=== PATIENT | female | born 1960 | race Hispanic/Latino ===

== ENCOUNTER 2019-07-22 10:36 | Inpatient (IN) | payer OTHER ==
[~2019-07-22] VITALS: Ht 162.6 cm; Wt 97.1 kg
[~2019-07-22 10:36] MED LIST: LEVOTHYROXINE150 MCG PO
--- OUTSIDE RECORDS SUMMARY | 2019-07-22 10:42 | XMS REPORT | Clinical Summary ---
Author Author [facility] Organization [facility] Address Unknown Phone Unavailable Care Team Providers Care Grooving Lathe Tender Name Role Phone Harrison Irving MD PCP Allergies Comments Active Allergy Reactions Severity Noted Date Latex Itching 11/04/2016 Medications End Date Status Medication Sig Dispensed Refills Start Date Active levothyroxine (SYNTHROID) Take 150 mcg 0 150 MCG tablet by mouth every morning. Active Problems No known active problems Family History Relation Name Status Comments Father Mother Social History Date Tobacco Use Types Packs/Day Years Used Never Smoker Smokeless Tobacco: Never Used Drinks/Week oz/Week Comments Alcohol Use No Sex Assigned at Date Recorded Not on file Industry Job Start Date Occupation Not on file Not on file Not on file Travel End Travel History Travel Start No recent travel history available. Last Filed Vital Signs Not on file Plan of Treatment Health Maintenance Due Date Last Done Comments CERVICAL CANCER SCREENING 1982 BREAST CANCER SCREENING 2011 COLONOSCOPY SCREENING 2011 SHINGLES VACCINES (#1) 2011 INFLUENZA VACCINE 06/15/2019 Implants Device Identifier Shelf Expiration Date Model / Serial / Lot Implanted Type Area Manufactur er 01/12/2017 TVTRL / / System Contnc Rtrpbc Gynecare Tvt Urological N/A: N/A GYNECARE Exact - [id number] Implants Implanted: Qty: 1 on 11/10/2016 by or Lulu Mckeon MD at [facility] Description:Expiration 01-12-2017 Results Not on fileafter 07/21/2018 Insurance Type Payer Benefit Subscriber ID Effective Phone Address Plan / Dates Group HMO CIGNA CIGNA xxxxxxxxxxx 2015-P HMO/POS resent Advance Directives For more information, please contact: [phone] Patient Claims Account Manager Explanation Type Date Recorded Advance Directives, Living Will and Medical Power of Instrument And Control Technician
--- OUTSIDE RECORDS SUMMARY | 2019-07-22 10:48 | XMS REPORT | Clinical Summary ---
Author Author [facility] Organization [facility] Address Unknown Phone Unavailable Care Team Providers Care Popcorn Attendant Name Role Phone Harrison Irving MD PCP [...] Tvt Urological N/A: N/A GYNECARE Exact - [id number] Implants Implanted: Qty: 1 on 11/10/2016 by or Lulu Mckeon MD at [facility] Description:Expiration 01-12-2017 Results Not on fileafter 07/21/2018 Insurance Type Payer Benefit Subscriber ID Effective Phone Address Plan / Dates Group HMO CIGNA CIGNA xxxxxxxxxxx 2015-P HMO/POS resent Advance Directives For more information, please contact: [phone] Patient Bottom Buffer Explanation Type Date Recorded Advance Directives, Living Will and Medical Power of Coffee Plantation Worker
[2019-07-22] MEDS ORDERED: SODIUM CHLORIDE 0.9% 1000ML 1,000 ML IV STA (11:32)
[2019-07-22] MEDS ORDERED: ONDANSETRON HCL INJ 2MG/ML 2ML 2 MG/ML VIAL IV NR (11:32)
[2019-07-22] MEDS ORDERED: PANTOPRAZOLE 40 MG 10ML VIAL IV STA (11:32)
[2019-07-22] MEDS ORDERED: PANTOPRAZOLE 40 MG 10ML VIAL IV NR (11:35)
[2019-07-22 11:57] LABS: BILIRUBIN,URINE NEGATIVE (NEGATIVE); CLARITY,URINE CLEAR (CLEAR); COLOR,URINE YELLOW (YELLOW); KETONES,URINE NEGATIVE (NEGATIVE); LEUKOCYTE ESTERASE ,URINE NEGATIVE (NEGATIVE); NITRITE,URINE NEGATIVE (NEGATIVE); PROTEIN,URINE DIPSTICK NEGATIVE (NEGATIVE); URINE UROBILINOGEN 0.2 mg/dL (0.2 - 1)
[2019-07-22 11:58] LABS: BASOPHILS % 0.2 % (0.0-1.0); EOSINOPHILS % 0.1 % (0.0-6.0); LYMPHOCYTES # (AUTO) 2.5 (1.0-3.2); LYMPHOCYTES % 23.1 % (18.0-39.1); MEAN CORPUSCULAR HEMOGLOBIN 32.7 pg (28-32); MEAN CORPUSCULAR HGB CONC 33.1 g/dL (31-35); MEAN CORPUSCULAR VOLUME 98.7 fL (81-99); MONOCYTES # (AUTO) 0.5 (0.2-0.8); MONOCYTES % 4.6 % (4.4-11.3); NEUTROPHILS # (AUTO) 7.8 (2.1-6.9); NEUTROPHILS % 71.1 % (38.7-80.0); PLATELET COUNT 231 x10e3/uL (140-360); RED BLOOD COUNT 1.59 x10e6/uL (3.6-5.1); RED CELL DISTRIBUTION WIDTH 13.1 % (11.7-14.4)
[2019-07-22 12:04] LABS: INR 1.06; PARTIAL THROMBOPLASTIN TIME 17.6 seconds (23.8-35.5); PROTHROMBIN TIME 14.3 seconds (11.9-14.5)
[2019-07-22 12:05] LABS: HEMOGLOBIN 5.2 g/dL (12.0-16.0)
[2019-07-22 12:06] LABS: HEMATOCRIT 15.7 % (34.2-44.1)
[2019-07-22 12:11] LABS: BACTERIA,URINE FEW /HPF; EPITHELIAL CELLS,URINE FEW /LPF; RBC,URINE 0-5 /HPF (0-5); WBC,URINE (MAN) 0-5 /HPF (0-5)
[2019-07-22 12:14] LABS: ALANINE AMINOTRANSFERASE 16 IU/L (0-55); ALBUMIN 2.7 g/dL (3.5-5.0); ALBUMIN/GLOBULIN RATIO 1.4 (0.8-2.0); ALKALINE PHOSPHATASE 42 IU/L (40-150); ANION GAP 11.3 mmol/L (8-16); BLOOD UREA NITROGEN 36 mg/dL (7-26); BUN/CREATININE RATIO 60 (6-25); CALCIUM 7.7 mg/dL (8.4-10.2); CARBON DIOXIDE 22 mmol/L (22-29); CHLORIDE 109 mmol/L (98-107); CREATINE KINASE 48 IU/L (29-168); EST GLOMERULAR FILTRATION RATE > 60 ML/MIN (60-); GLUCOSE 171 mg/dL (74-118); LIPASE 13 U/L (8-78); POTASSIUM 4.3 mmol/L (3.5-5.1); SODIUM 138 mmol/L (136-145)
[2019-07-22] MEDS ORDERED: SODIUM CHLORIDE 0.9% 250ML 250 ML IV ONE (12:15)
[2019-07-22 12:28] LABS: B-TYPE NATRIURETIC PEPTIDE2 < 10.0 pg/mL (0-100)
--- NOTE | 2019-07-22 13:10 | Diagnostic Imaging Report ---
EXAMINATION: CHEST SINGLE (PORTABLE) INDICATION: Dizziness. COMPARISON: None FINDINGS: TUBES and LINES: None. LUNGS: Lungs are well inflated. Mild patchy bibasilar opacities, likely atelectasis. No evidence of lobar pneumonia or pulmonary edema. PLEURA: No pleural effusion or pneumothorax. HEART AND MEDIASTINUM: The cardiomediastinal silhouette is unremarkable. BONES AND SOFT TISSUES: No acute osseous abnormality. UPPER ABDOMEN: No free air under the diaphragm. IMPRESSION: Mild patchy bibasilar opacity, likely atelectasis. No evidence of lobar pneumonia. Signed by: Dr. Zoran Oliver MD on 07/22/2019 1:06 PM
--- NOTE | 2019-07-22 13:21 | Diagnostic Imaging Report ---
CT BRAIN WO HISTORY: 58-year-old female with dizziness and blurred vision COMPARISON: None. TECHNIQUE: Noncontrast axial scans were obtained from skull base to the vertex. Coronal and sagittal reconstructions obtained from the axial data. One or more of the following dose reduction techniques were used: Automated exposure control, adjustment of the mA and/or kV according to patient size, and/or utilization of iterative reconstruction technique. DISCUSSION: Scalp/Skull: Unremarkable. Brain sulci: Appropriate for patient's age. Ventricles: Normal in size and configuration. No hydrocephalus. Extra-axial spaces: No masses or fluid collections. Parenchyma: No abnormal densities. No mass, hemorrhage, or large vascular territory acute infarct. Dural sinuses: No abnormal densities. Sellar/Suprasellar region: Intact. Partially empty sella configuration is noted. Skull base: Intact. Incidental findings: None. IMPRESSION: No intracranial abnormalities identified. This preliminary report was issued by Dr. Jordan Salinas neuroradiology fellow at 1320 hours on 07/22/2019. The images and preliminary report were reviewed and signed by Dr. Jada Roth, neuroradiology faculty, on July 22, 2019 at 1529 hours. Signed by: Dr. Jada Roth M.D. on 07/22/2019 3:29 PM
[2019-07-22] MEDS ORDERED: SODIUM CHLORIDE 0.9% 1000ML 1,000 ML ONE ×2 (13:40→19:33)
--- NOTE | 2019-07-22 14:30 | NUR ---
CONSENT ON CHART FOR BLOOD TRANSFUSION
[2019-07-22] MEDS ORDERED: SODIUM CHLORIDE 0.9% 250ML 250 ML ONE ×2 (14:37→20:21)
--- NOTE | 2019-07-22 14:40 | NUR ---
1st unit of blood started. v.s.s.
[2019-07-22] MEDS: FUROSEMIDE INJ 10 MG/ML 2 ML VIAL IV PRN (17:48)
--- OUTSIDE RECORDS SUMMARY | 2019-07-22 18:03 | XMS REPORT | Clinical Summary ---
Author Author [facility] Organization [facility] Address Unknown Phone Unavailable Care Team Providers Care Mail Messenger Name Role Phone Harrison Irving MD PCP [...] Tvt Urological N/A: N/A GYNECARE Exact - [id number] Implants Implanted: Qty: 1 on 11/10/2016 by or Lulu Mckeon MD at [facility] Description:Expiration 01-12-2017 Results Not on fileafter 07/21/2018 Insurance Type Payer Benefit Subscriber ID Effective Phone Address Plan / Dates Group HMO CIGNA CIGNA xxxxxxxxxxx 2015-P HMO/POS resent Advance Directives For more information, please contact: [phone] 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
--- OUTSIDE RECORDS SUMMARY | 2019-07-22 18:03 | XMS REPORT ---
[facility] Address Unknown Phone Unavailable Care Team Providers Care Asphalt Roller Person Name Role Phone Rosario CARBONE Unavailable Unavailable Problems This patient has no known problems. Allergies, Adverse Reactions, Alerts This patient has no known allergies or adverse reactions. Medications This patient has no known medications. Results Test Description Test Time Test Comments Text Results Atomic Results Result Comments CT BRAIN WO 2019-07-22 13:13:00 [facility] [address] [place] [address] Patient Name: HAI RUIZ MR #: [id number] : 1960 Age/Sex: 58/F Req #: [id number] Adm Physician: Ordered by: AKHIL CARBONE MD Report #: [id number] Location: ER Room/Bed: Procedure: [id number] CT/CT BRAIN WO Exam Date: 07/22/19 Exam Time: 1223 REPORT STATUS: Signed CT BRAIN WO HISTORY: 58-year-old female with dizziness and blurred vision COMPARISON: None. TECHNIQUE: Noncontrast axial scans were obtained from skull base to the vertex. Coronal and sagittal reconstructions obtained from the axial data. One or more of the following dose reduction techniques were used: Automated exposure control, adjustment of the mA and/or kV according to patient size, and/or utilization of iterative reconstruction technique. DISCUSSION: Scalp/Skull: Unremarkable. Brain sulci: Appropriate for patient's age. Ventricles: Normal in size and configuration. No hydrocephalus. Extra-axial spaces: No masses or fluid collections. Parenchyma: No abnormal densities. No mass, hemorrhage, or large vascular territory acute infarct. Dural sinuses: No abnormal densities. Sellar/Suprasellar region: Intact. Partially empty sella configuration is noted. Skull base: Intact. Incidental findings: None. IMPRESSION: No intracranial abnormalities identified. This preliminary report was issued by Dr. Jordan Salinas neuroradiology fellow at 1320 hours on 07/22/2019. The images and preliminary report were reviewed and signed by Dr. Jada Roth, neuroradiology faculty, on July 22, 2019 at 1529 hours. Signed by: Dr. Jada Roth M.D. on 07/22/2019 3:29 PM Dictated By: JADA AKHTAR MD 1529 Transcribed By: SANTY on 07/22/19 1529 COPY TO: AKHIL CARBONE MD CHEST SINGLE (PORTABLE) 2019-07-22 13:05:00 [place] [address] Patient Name: HAI RUIZ MR #: [id number] : 1960 Age/Sex: 58/F Req #: [id number] Adm Physician: Ordered by: WAYNE CRUZ HEDGE FUND PRINCIPAL Report #: [id number] Location: ER Room/Bed: Procedure: [id number] DX/CHEST SINGLE (PORTABLE) Exam Date: 07/22/19 Exam Time: 1240 REPORT STATUS: Signed EXAMINATION: CHEST SINGLE (PORTABLE) ANA CATION: Dizziness. COMPARISON: None FINDINGS: TUBES and LINES: None. LUNGS: Lungs are well inflated. Mild patchy bibasilar opacities, likely atelectasis. No evidence of lobar pneumonia or pulmonary edema. PLEURA: No pleural effusion or pneumothorax. HEART AND MEDIASTINUM: The cardiomediastinal silhouette is unremarkable. BONES AND SOFT TISSUES: No acute osseous abnormality. UPPER ABDOMEN: No free air under the diaphragm. IMPRESSION: Mild patchy bibasilar opacity, likely atelectasis. No evidence of lobar pneumonia. Signed by: Dr. Mann Lloyd MD on 07/22/2019 1:06 PM Dictated By: MANN LLOYD MD 1306 Transcribed By: SANTY on 07/22/19 1306 COPY TO: WAYNE CRUZ NP
--- NOTE | 2019-07-22 18:35 | NUR ---
Received patient from Er patient arrived in stretcher she is awake alert and oriented x3, able to transfer from stretcher to bed with minimal assistance. Placed on telemetry ST. Wharton to gravity draining clear yellow urine emptied [place] 1100 clear yellow urine. Family at bedside, patient oriented to room instructed to call when needing assistance patient verbalized understanding.
[2019-07-22 18:50] VITALS: BP 102/69
[2019-07-22] MEDS ORDERED: LOVASTATIN40 MG (19:55)
[2019-07-22] MEDS ORDERED: ASPIRIN EC81 MG PO (19:56)
[2019-07-22] MEDS ORDERED: METFORMIN HCL500 MG PO (19:58)
[2019-07-22 20:16] VITALS: BP 102/60
[2019-07-22] MEDS: PANTOPRAZOLE 40 MG 10ML VIAL IV SCH (20:47)
--- NOTE | 2019-07-22 21:23 | NUR ---
PATIENT COMPLAINING OF BILATERAL CALF PAIN, BOTH ARE SWOLLEN. PAGED DR. ALATORRE TO NOTIFY AND SEE IF WANTED DOPPLER TO RULE OUT DVT BUT DECLINED. PATIENT ORDERED ONE TIME DOSE OF TYLENOL 325 MG FOR CALF PAIN. DID NOT CONTINUE HOME MEDS AT THIS TIME AND KEPT NPO. ORDERED TO CALL DR. DESOUZA TO NOTIFY AND SEE NEXT COURSE. PAGED DR. DESOUZA'S OFFICE. AWAITING CALL BACK.
[2019-07-22] MEDS ORDERED: ACETAMINOPHEN 325 MG TAB PO ONE (21:30)
[2019-07-22 21:50] VITALS: BP 102/60
[2019-07-22] MEDS ORDERED: SODIUM CHLORIDE 0.9% 250ML 500 ML ONE (22:47)
--- NOTE | 2019-07-22 23:02 | NUR ---
Spoke with Alvaro motion study technician., informed of stat Doppler order for patient
[2019-07-23] VITALS (9 sets, daily range): BP systolic 91–135; BP diastolic 56–86
[2019-07-23] MEDS ORDERED: ACETAMINOPHEN 1000 MG/100 ML IV STA (00:50)
[2019-07-23] MEDS ORDERED: ACETAMINOPHEN 1000 MG/100 ML IV PRN (01:00)
[2019-07-23] MEDS: FUROSEMIDE INJ 10 MG/ML 2 ML VIAL IV PRN ×2 (02:26→06:08)
[2019-07-23] MEDS ORDERED: SODIUM CHLORIDE 0.9% 250ML 250 ML ONE (02:49)
[2019-07-23 06:42] LABS: BASOPHILS # (AUTO) 0.1 (0.0-0.1); BASOPHILS % 0.8 % (0.0-1.0); EOSINOPHILS # (AUTO) 0.1 (0.0-0.4); EOSINOPHILS % 0.9 % (0.0-6.0); HEMATOCRIT 28.7 % (34.2-44.1); HEMOGLOBIN 9.6 g/dL (12.0-16.0); LYMPHOCYTES # (AUTO) 3.7 (1.0-3.2); LYMPHOCYTES % 32.6 % (18.0-39.1); MEAN CORPUSCULAR HEMOGLOBIN 30.8 pg (28-32); MEAN CORPUSCULAR HGB CONC 33.4 g/dL (31-35); MONOCYTES # (AUTO) 0.8 (0.2-0.8); MONOCYTES % 7.5 % (4.4-11.3); NEUTROPHILS # (AUTO) 6.4 (2.1-6.9); NEUTROPHILS % 56.8 % (38.7-80.0); PLATELET COUNT 183 x10e3/uL (140-360); RED BLOOD COUNT 3.12 x10e6/uL (3.6-5.1); RED CELL DISTRIBUTION WIDTH 14.6 % (11.7-14.4)
[2019-07-23 06:54] LABS: RETICULOCYTE % 2.8 % (0.8-2.2)
[2019-07-23 08:20] LABS: CREATINE KINASE MB 0.2 ng/mL (0-5.0)
[2019-07-23] MEDS: PANTOPRAZOLE 40 MG 10ML VIAL IV SCH ×2 (09:00→20:42)
[2019-07-23 09:06] LABS: FOLATE 8.8 ng/mL (7.0-15.4)
[2019-07-23 11:17] LABS: FERRITIN 86.25 ng/mL (4.63-204.00)
--- NOTE | 2019-07-23 11:38 | Diagnostic Imaging Report ---
Tagged-RBC GI Bleed Study Clinical information: 58-year-old female with GI bleeding and anemia. Discussion: The patient's own red blood cells were labeled with 25 mCi of technetium-99m pertechnetate using the in vitro method (UltraTag). Dynamic images of the abdomen were obtained through 60 minutes. Distribution of tracer activity initially appears physiologic throughout the abdomen. At 5 minutes into the study, a focus of tracer appears in small bowel in the left abdomen near the midline at the level of the aortic bifurcation and proceeds in a serpiginous loop to the upper left quadrant and then to the right abdomen. Impression: A small bowel bleed is identified that starts to the left of midline at the level of the aortic bifurcation. It appears to be in the proximal small bowel or possibly in the distal duodenum. Signed by: Dr. Johanny Torre M.D. on 07/23/2019 11:35 AM
[2019-07-23 12:16] LABS: BASOPHILS # (AUTO) 0.1 (0.0-0.1); BASOPHILS % 1.1 % (0.0-1.0); EOSINOPHILS # (AUTO) 0.2 (0.0-0.4); EOSINOPHILS % 1.5 % (0.0-6.0); HEMATOCRIT 28.1 % (34.2-44.1); HEMOGLOBIN 9.5 g/dL (12.0-16.0); LYMPHOCYTES # (AUTO) 3.4 (1.0-3.2); LYMPHOCYTES % 28.2 % (18.0-39.1); MEAN CORPUSCULAR HEMOGLOBIN 30.9 pg (28-32); MEAN CORPUSCULAR HGB CONC 33.8 g/dL (31-35); MEAN CORPUSCULAR VOLUME 91.5 fL (81-99); MONOCYTES # (AUTO) 0.8 (0.2-0.8); MONOCYTES % 6.8 % (4.4-11.3); NEUTROPHILS # (AUTO) 7.3 (2.1-6.9); NEUTROPHILS % 59.9 % (38.7-80.0); PLATELET COUNT 188 x10e3/uL (140-360); RED BLOOD COUNT 3.07 x10e6/uL (3.6-5.1); RED CELL DISTRIBUTION WIDTH 14.9 % (11.7-14.4)
[2019-07-23] MEDS ORDERED: LIDOCAINE HCL 2% LOCAL INJ 5 ML SDV VIAL INJ ONE (13:50)
[2019-07-23] MEDS ORDERED: PROPOFOL IV EMULSION 10 MG/ML 50 ML VIAL ONE (13:50)
[2019-07-23] MEDS ORDERED: ACETAMINOPHEN 325 MG TAB PO NR (14:30)
[2019-07-23 16:33] LABS: BASOPHILS # (AUTO) 0.1 (0.0-0.1); EOSINOPHILS # (AUTO) 0.2 (0.0-0.4); EOSINOPHILS % 1.5 % (0.0-6.0); LYMPHOCYTES # (AUTO) 3.4 (1.0-3.2); LYMPHOCYTES % 27.5 % (18.0-39.1); MEAN CORPUSCULAR HEMOGLOBIN 31.6 pg (28-32); MEAN CORPUSCULAR HGB CONC 34.6 g/dL (31-35); MEAN CORPUSCULAR VOLUME 91.2 fL (81-99); MONOCYTES # (AUTO) 0.8 (0.2-0.8); MONOCYTES % 6.4 % (4.4-11.3); NEUTROPHILS # (AUTO) 7.6 (2.1-6.9); NEUTROPHILS % 61.6 % (38.7-80.0); PLATELET COUNT 166 x10e3/uL (140-360); RED BLOOD COUNT 2.85 x10e6/uL (3.6-5.1)
[2019-07-23] MEDS ORDERED: SODIUM CHLORIDE 0.9% 500ML 500 ML IV ONE (16:45)
[2019-07-23] MEDS: SODIUM CHLORIDE 0.9% 1000ML 1,000 ML IV SCH (16:45)
[2019-07-23 16:51] LABS: ANION GAP 10.6 mmol/L (8-16); BLOOD UREA NITROGEN 24 mg/dL (7-26); BUN/CREATININE RATIO 44 (6-25); CALCIUM 8.2 mg/dL (8.4-10.2); CARBON DIOXIDE 27 mmol/L (22-29); CHLORIDE 103 mmol/L (98-107); CREATININE, SERUM 0.55 mg/dL (0.57-1.11); EST GLOMERULAR FILTRATION RATE > 60 ML/MIN (60-); GLUCOSE 110 mg/dL (74-118); POTASSIUM 3.6 mmol/L (3.5-5.1); SODIUM 137 mmol/L (136-145)
[2019-07-23] MEDS ORDERED: FENTANYL CITRATE/PF 100MCG/2 ML INJ ONE (17:38)
[2019-07-23] MEDS ORDERED: MIDAZOLAM HCL 2 MG/2 ML VIAL ONE (17:38)
[2019-07-23] MEDS ORDERED: SODIUM CHLORIDE 0.9% 250ML 250 ML IV NR (17:45)
[2019-07-23] MEDS ORDERED: SODIUM CHLORIDE 0.9% 250ML 250 ML IV ONE (18:00)
--- NOTE | 2019-07-23 18:27 | Consultation ---
DATE OF CONSULTATION: 07/23/2019 REASON FOR CONSULTATION: GI bleed. HISTORY OF PRESENT ILLNESS: The patient is a 58-year-old female, admitted because on Wednesday, she felt dizzy and developed hematemesis. She did not black out, but felt very weak. The patient was admitted to the hospital, subsequently was transfused 3 units of blood and had a nuclear medicine scan that revealed bleeding coming from small bowel, possibly duodenal in origin. The patient at this point is hemodynamically stable and she has not had any further hematemesis. The hemoglobin has stabilized at 9. At this time, she is awaiting an endoscopy by Dr. Aryan Taylor. PAST MEDICAL HISTORY: Significant for diabetes and hypothyroidism. PREVIOUS SURGERIES: Include the vein stripping, bladder suspension, and removal of mesh. CURRENT MEDICATIONS: Include metformin, and aspirin, which was started by her primary care physician. At this time, obviously, the aspirin has been held. PHYSICAL EXAMINATION: GENERAL: Reveals a 58-year-old female, in no acute distress. She looks slightly pale. HEAD, EYES, EARS, NOSE, AND THROAT: Unremarkable. LUNGS: Clear. HEART: Reveals regular sinus rhythm. ABDOMEN: Soft. Parenthetically, prior to this admission, she did complain of some epigastric pain. EXTREMITIES: Reveal no cyanosis. LABORATORY DATA: Revealed a hemoglobin of 9 with a white count of 12, hematocrit of 26. PT and INR as well as PTT are normal. On admission, also had a brain CT that was unremarkable and a chest x-ray that revealed no acute process. ASSESSMENT: The patient with hematemesis, most likely aspirin-induced upper gastrointestinal bleed. At this time, the patient is hemodynamically stable. There is no need for surgery. The patient will be undergoing EGD this evening by Dr. Aryan Taylor. She is currently getting Protonix 40 mg b.i.d. We will follow the patient along with you. MD BABAK Null/KAYY /[id number]
--- NOTE | 2019-07-23 19:15 | NUR ---
Report received from ASBESTOS WORKER HELPERARGENTINA Ha. Patient received in unit @1925 by bed with stable condition. No c/o pain. Patient continued on 2liters oxygen via nasal canula,Spo2 maintained 100%. V/S WNL. Respiration even and unlabored. Family in the room. Bed in lower position and locked. Call feliciano within reach. Will continue to monitor.
--- NOTE | 2019-07-23 19:49 | NUR ---
I spoke to Dr. Sapp about EGD results and latest Hgb-9.0 and he said to Hold giving the One Unit of PRBC for now. Will continue to evaluate her labs.
--- NOTE | 2019-07-23 20:03 | History and Physical ---
CLINICAL HISTORY: This is a 58-year-old white woman taking aspirin and Advil for arthritic pain, presented to the emergency room with one and half weeks of upper GI bleeding with melena, dizziness and near syncope with hemoglobin found to 5.2 g/dL. This patient has been taking aspirin for several months and Advil for several months because of arthritis. One and half weeks ago, she started noticing dark stool and pink urine, but ignored it. Two days ago, she started vomiting blood, but once again ignored it. Finally, she became so weak, near syncopal, had some chest pain, decided to come to the emergency room. CT scan of the head was negative. She is admitting for blood transfusion, further evaluation, and treatment. PAST MEDICAL HISTORY: Remarkable for diabetes, hyperlipidemia, hypothyroidism, arthritis. PERSONAL AND SOCIAL HISTORY: Denies smoking and drinking. She is an unemployed. FAMILY HISTORY: Father had brain aneurysm. 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 REVIEW OF SYSTEMS: Noncontributory. PAST SURGICAL HISTORY: Bladder mesh and varicose vein surgery. PHYSICAL EXAMINATION: GENERAL: She is alert and coherent. VITAL SIGNS: Stable. CARDIAC: Jugular veins were nondistended. S1, S2 were regular. There were no appreciable murmur. LUNGS: Clear. ABDOMEN: Soft. Bowel sounds present. EXTREMITIES: No cyanosis, clubbing, or edema. LABORATORY DATA: White count 10,000, hemoglobin 5.2, platelet count 231,000. CT scan of the head was negative. INR was 1.06. Electrolytes were satisfactory. Blood sugar 171, total protein 4.7, albumin 2.7. IMPRESSION: 1. Severe upper gastrointestinal bleeding with severe anemia, hemoglobin is 5.2. 2. History of asthma. Nonsteroidal medications used possibly causing the ulcers. 3. Diabetes. 4. Hyperlipidemia. 5. Hypothyroidism. 6. History of bladder mesh. 7. History of varicose vein surgery. 8. Lower extremity leg cramps. 9. Atypical chest discomfort, possibly related to anemia, although coronary artery disease may be considered. RECOMMENDATION: Blood transfusion, GI evaluation, Surgical evaluation. Thyroid replacement when the patient out to take p.o. She still has chest pains after correction of anemia. She may benefit from stress testing which can be done as an outpatient basis. Chavo Sapp MD MKJ/MODL /[id number] cc: MD Harrison Be MD Laird A Sweet, MD Maurice S Haddad, MD
[2019-07-24] VITALS (7 sets, daily range): BP systolic 89–101; BP diastolic 50–60
[2019-07-24 00:12] LABS: BASOPHILS # (AUTO) 0.1 (0.0-0.1); EOSINOPHILS # (AUTO) 0.2 (0.0-0.4); EOSINOPHILS % 2.2 % (0.0-6.0); HEMATOCRIT 23.8 % (34.2-44.1); HEMOGLOBIN 8.1 g/dL (12.0-16.0); LYMPHOCYTES # (AUTO) 2.7 (1.0-3.2); LYMPHOCYTES % 27.8 % (18.0-39.1); MEAN CORPUSCULAR HEMOGLOBIN 31.4 pg (28-32); MEAN CORPUSCULAR VOLUME 92.2 fL (81-99); MONOCYTES # (AUTO) 0.6 (0.2-0.8); MONOCYTES % 6.1 % (4.4-11.3); NEUTROPHILS # (AUTO) 5.9 (2.1-6.9); NEUTROPHILS % 61.2 % (38.7-80.0); PLATELET COUNT 158 x10e3/uL (140-360); RED BLOOD COUNT 2.58 x10e6/uL (3.6-5.1)
[2019-07-24] MEDS: SODIUM CHLORIDE 0.9% 1000ML 1,000 ML IV SCH ×3 (01:22→16:42)
[2019-07-24 05:40] LABS: BASOPHILS # (AUTO) 0.1 (0.0-0.1); EOSINOPHILS # (AUTO) 0.3 (0.0-0.4); EOSINOPHILS % 3.1 % (0.0-6.0); HEMOGLOBIN 7.6 g/dL (12.0-16.0); LYMPHOCYTES # (AUTO) 2.4 (1.0-3.2); LYMPHOCYTES % 27.6 % (18.0-39.1); MEAN CORPUSCULAR HEMOGLOBIN 31.9 pg (28-32); MEAN CORPUSCULAR HGB CONC 33.8 g/dL (31-35); MEAN CORPUSCULAR VOLUME 94.5 fL (81-99); MONOCYTES # (AUTO) 0.6 (0.2-0.8); NEUTROPHILS # (AUTO) 5.3 (2.1-6.9); NEUTROPHILS % 59.7 % (38.7-80.0); PLATELET COUNT 161 x10e3/uL (140-360); RED BLOOD COUNT 2.38 x10e6/uL (3.6-5.1); RED CELL DISTRIBUTION WIDTH 15.2 % (11.7-14.4)
[2019-07-24 06:10] LABS: HEMATOCRIT 22.5 % (34.2-44.1)
--- NOTE | 2019-07-24 06:32 | NUR ---
Paged Dr. Sapp about critical labs, waiting for MD's call back.
--- NOTE | 2019-07-24 07:00 | NUR ---
Pt received resting in bed during walking rounds with daughter at bedside. Alert and oriented x4. Oriented to staff and surroundings. Encouraged to press call feliciano if help needed. Pt verbalized understanding of teaching. Call feliciano within reach. Will monitor
--- NOTE | 2019-07-24 07:01 | NUR ---
Report given to oncoming nurse Marissa, walking round done.
--- NOTE | 2019-07-24 07:08 | NUR ---
Received call back from Dr. Sapp in regards to Hgb 7.6. 2 units of PRBC ordered. Will follow up
[2019-07-24] MEDS ORDERED: SODIUM CHLORIDE 0.9% 250ML 250 ML IV ONE (07:15)
--- NOTE | 2019-07-24 07:35 | Operative Report ---
DATE OF PROCEDURE: 07/23/2019 SURGEON: Aryan Taylor MD REFERRING PHYSICIANS: 1. Chavo Sapp MD. 2. Harrison Merrill MD. INDICATIONS FOR EGD: Enteroscopy, anemia, melena, positive GI bleed scan. MEDICATIONS: The patient was done under MAC, please see anesthesiologist's note. PROCEDURE IN DETAIL: With the patient in left lateral decubitus position flexible fiberoptic Olympus gastroscope was introduced into the esophagus under direct visualization without any difficulty. There was some patchy erythema noted in distal esophagus. The scope was then advanced with ease into the stomach and several gastric ulcers were noted in the antrum. One of the ulcers in the pre-pyloric area had a flat red spot in the crater compatible with recent hemorrhage and some that was fulgurated with size 7-Beninese Gold probe. Pylorus was intubated with ease and the scope was advanced all the way to the second portion of the duodenum. It was then withdrawn slowly. Mucosa overlying the proximal second portion appeared to be within normal limits. An approximately 5 mm duodenal ulcer along the anterior wall was noted just beyond the pylorus without active bleeding or stigmata of recent hemorrhage. The scope was then withdrawn back into the stomach and retroflexed and mucosa overlying the fundus and cardia appeared to be within normal limits. The scope was then straightened out, it was subsequently withdrawn. The pediatric colonoscope was then introduced into the esophagus under direct visualization without any difficulty and was advanced all the way to approximately 160 cm from the incisors. The GI bleed scan revealed possible active bleeding in the proximal small bowel. The scope was then withdrawn slowly whatever was visualized the mucosa overlying the proximal jejunum and the duodenum revealed no active bleeding and no potential bleeding sites. It was subsequently withdrawn and the patient tolerated procedure well. IMPRESSION: 1. Distal esophagitis, mild. 2. Gastritis. 3. Gastric ulcers, antrum, multiple. One gastric ulcer approximately 6 mm in size with heaped up margins in the peripyloric area with red spot in the crater compatible with recent hemorrhage, was fulgurated the size 7-Beninese gold probe. 4. Duodenal ulcer, bulb, anterior wall without active bleeding or stigmata of recent hemorrhage. 5. Enteroscopy up to 160 cm from the incisors revealed no small bowel pathology. PLAN: Follow H and H, initiate full liquid diet. MD ANASTACIA Rose/KAYY /[id number] cc: MD Harrison Lemon MD
[2019-07-24] MEDS ORDERED: HEPARIN SOD (PORCINE) 1000 UNIT/ML SDV ONE (08:27)
[2019-07-24] MEDS: PANTOPRAZOLE 40 MG 10ML VIAL IV SCH ×2 (08:45→20:43)
--- NOTE | 2019-07-24 08:45 | NUR ---
Pt c/o pain to right AC iv site. Saline lock #20 inserted into right forearm. Emotional support given. Will start blood transfusion when available. Will monitor
--- NOTE | 2019-07-24 09:15 | NUR ---
Pt with hgb 7.6, and 2 units of PRBC transfusion ordered. Blood verified by 2 RNs. Blood unit number [id number]. Transfusion started at 9am. Pt and family educated regarding s/s to report. No untoward reaction noted after 15 minutes of transfusion
--- NOTE | 2019-07-24 09:30 | NUR ---
No untoward reaction noted after 30 minutes of blood transfusion. Will monitor
[2019-07-24] MEDS ORDERED: ACETAMINOPHEN 325 MG TAB PO PRN (11:15)
--- NOTE | 2019-07-24 11:30 | NUR ---
Blood transfusion completed at 1130am. Vitals stable, pt is afebrile. Will start second unit of transfusion
[2019-07-24] MEDS: LIDOCAINE 5% PATCH TP SCH (11:59)
--- NOTE | 2019-07-24 12:05 | NUR ---
Second unit of blood transfusion started at 1150am. Blood verified by two RNS. Blood unit number [id number]. No untoward reactions noted during first 15 minutes. Will monitor
--- NOTE | 2019-07-24 12:20 | NUR ---
No untoward reaction noted after 30 minutes. Will monitor
--- NOTE | 2019-07-24 14:50 | NUR ---
Second unit of transfusion completed at 1450. Pt resting comfortably in bed. Call feliciano within. Will follow up H&H at 1700
[2019-07-24] MEDS ORDERED: SODIUM CHLORIDE 0.9% 500ML 500 ML IV ONE (16:45)
[2019-07-24 18:16] LABS: BASOPHILS # (AUTO) 0.1 (0.0-0.1); BASOPHILS % 0.7 % (0.0-1.0); EOSINOPHILS # (AUTO) 0.3 (0.0-0.4); EOSINOPHILS % 3.2 % (0.0-6.0); HEMATOCRIT 28.8 % (34.2-44.1); LYMPHOCYTES # (AUTO) 2.3 (1.0-3.2); LYMPHOCYTES % 23.1 % (18.0-39.1); MEAN CORPUSCULAR HEMOGLOBIN 31.9 pg (28-32); MEAN CORPUSCULAR HGB CONC 34.7 g/dL (31-35); MONOCYTES # (AUTO) 0.5 (0.2-0.8); MONOCYTES % 5.3 % (4.4-11.3); NEUTROPHILS # (AUTO) 6.5 (2.1-6.9); NEUTROPHILS % 66.7 % (38.7-80.0); PLATELET COUNT 141 x10e3/uL (140-360); RED BLOOD COUNT 3.13 x10e6/uL (3.6-5.1); RED CELL DISTRIBUTION WIDTH 14.6 % (11.7-14.4)
--- NOTE | 2019-07-24 23:42 | NUR ---
LEONIDAS BLOOD AND SENT SAMPLE TO LAB FOR CBC CHECK.
[2019-07-25 00:05] LABS: BASOPHILS # (AUTO) 0.1 (0.0-0.1); BASOPHILS % 0.6 % (0.0-1.0); EOSINOPHILS # (AUTO) 0.3 (0.0-0.4); EOSINOPHILS % 3.9 % (0.0-6.0); HEMATOCRIT 29.1 % (34.2-44.1); LYMPHOCYTES # (AUTO) 2.2 (1.0-3.2); LYMPHOCYTES % 26.3 % (18.0-39.1); MEAN CORPUSCULAR HEMOGLOBIN 31.7 pg (28-32); MEAN CORPUSCULAR HGB CONC 34.4 g/dL (31-35); MEAN CORPUSCULAR VOLUME 92.4 fL (81-99); MONOCYTES # (AUTO) 0.5 (0.2-0.8); MONOCYTES % 6.3 % (4.4-11.3); NEUTROPHILS # (AUTO) 5.1 (2.1-6.9); NEUTROPHILS % 61.6 % (38.7-80.0); PLATELET COUNT 163 x10e3/uL (140-360); RED BLOOD COUNT 3.15 x10e6/uL (3.6-5.1); RED CELL DISTRIBUTION WIDTH 14.6 % (11.7-14.4)
[2019-07-25] MEDS: SODIUM CHLORIDE 0.9% 1000ML 1,000 ML IV SCH ×3 (00:26→17:02)
[2019-07-25 04:05] VITALS: BP 90/56
[2019-07-25 05:20] LABS: BASOPHILS # (AUTO) 0.1 (0.0-0.1); EOSINOPHILS # (AUTO) 0.4 (0.0-0.4); EOSINOPHILS % 4.3 % (0.0-6.0); HEMATOCRIT 28.4 % (34.2-44.1); HEMOGLOBIN 9.6 g/dL (12.0-16.0); LYMPHOCYTES # (AUTO) 2.1 (1.0-3.2); LYMPHOCYTES % 25.5 % (18.0-39.1); MEAN CORPUSCULAR HEMOGLOBIN 31.9 pg (28-32); MEAN CORPUSCULAR HGB CONC 33.8 g/dL (31-35); MEAN CORPUSCULAR VOLUME 94.4 fL (81-99); MONOCYTES # (AUTO) 0.6 (0.2-0.8); MONOCYTES % 7.5 % (4.4-11.3); NEUTROPHILS # (AUTO) 4.9 (2.1-6.9); NEUTROPHILS % 60.5 % (38.7-80.0); PLATELET COUNT 163 x10e3/uL (140-360); RED BLOOD COUNT 3.01 x10e6/uL (3.6-5.1); RED CELL DISTRIBUTION WIDTH 14.6 % (11.7-14.4)
[2019-07-25 05:47] LABS: ANION GAP 10.4 mmol/L (8-16); BLOOD UREA NITROGEN 9 mg/dL (7-26); BUN/CREATININE RATIO 18 (6-25); CALCIUM 8.1 mg/dL (8.4-10.2); CARBON DIOXIDE 23 mmol/L (22-29); CHLORIDE 110 mmol/L (98-107); CREATININE, SERUM 0.51 mg/dL (0.57-1.11); EST GLOMERULAR FILTRATION RATE > 60 ML/MIN (60-); GLUCOSE 101 mg/dL (74-118); POTASSIUM 3.4 mmol/L (3.5-5.1); SODIUM 140 mmol/L (136-145)
[2019-07-25 07:20] VITALS: BP 98/62
[2019-07-25] MEDS: PANTOPRAZOLE 40 MG 10ML VIAL IV SCH ×2 (09:08→21:14)
[2019-07-25 11:33] VITALS: BP 109/73
--- NOTE | 2019-07-25 11:34 | NUR ---
FC dc, pt dtv
[2019-07-25] MEDS ORDERED: POTASSIUM CHLORIDE 20 MEQ TAB CR PO ONE (11:35)
[2019-07-25] MEDS: LEVOTHYROXINE SODIUM 75 MCG TAB PO SCH (11:57)
[2019-07-25 12:07] LABS: BASOPHILS # (AUTO) 0.1 (0.0-0.1); EOSINOPHILS # (AUTO) 0.3 (0.0-0.4); EOSINOPHILS % 3.6 % (0.0-6.0); HEMATOCRIT 31.2 % (34.2-44.1); HEMOGLOBIN 10.6 g/dL (12.0-16.0); LYMPHOCYTES # (AUTO) 1.7 (1.0-3.2); LYMPHOCYTES % 20.9 % (18.0-39.1); MEAN CORPUSCULAR VOLUME 94.3 fL (81-99); MONOCYTES # (AUTO) 0.5 (0.2-0.8); MONOCYTES % 6.7 % (4.4-11.3); NEUTROPHILS # (AUTO) 5.4 (2.1-6.9); NEUTROPHILS % 66.7 % (38.7-80.0); PLATELET COUNT 185 x10e3/uL (140-360); RED BLOOD COUNT 3.31 x10e6/uL (3.6-5.1); RED CELL DISTRIBUTION WIDTH 14.6 % (11.7-14.4)
[2019-07-25] MEDS: LIDOCAINE 5% PATCH TP SCH (13:41)
[2019-07-25 16:55] VITALS: BP 108/63
[2019-07-25 19:28] VITALS: BP 108/68
[2019-07-25 19:31] LABS: BASOPHILS # (AUTO) 0.1 (0.0-0.1); BASOPHILS % 0.7 % (0.0-1.0); EOSINOPHILS # (AUTO) 0.4 (0.0-0.4); HEMATOCRIT 32.2 % (34.2-44.1); MEAN CORPUSCULAR HGB CONC 34.2 g/dL (31-35); MEAN CORPUSCULAR VOLUME 93.6 fL (81-99); MONOCYTES # (AUTO) 0.5 (0.2-0.8); MONOCYTES % 5.3 % (4.4-11.3); NEUTROPHILS # (AUTO) 7.2 (2.1-6.9); NEUTROPHILS % 69.8 % (38.7-80.0); PLATELET COUNT 194 x10e3/uL (140-360); RED BLOOD COUNT 3.44 x10e6/uL (3.6-5.1); RED CELL DISTRIBUTION WIDTH 14.6 % (11.7-14.4)
--- NOTE | 2019-07-25 20:15 | NUR ---
Walking rounds done and report received. Patient is awake, alert and able to make needs known. Daughter at bedside. POC discussed in Bengali per patient preference. She was instructed to call for assistance as needed and verbalized understanding.
[2019-07-25 21:00] VITALS: BP 108/68
[2019-07-26 00:03] VITALS: BP 101/63
[2019-07-26] MEDS: SODIUM CHLORIDE 0.9% 1000ML 1,000 ML IV SCH ×2 (01:36→11:03)
--- NOTE | 2019-07-26 02:35 | NUR ---
Dr. Luann Taylor at the bedside making rounds. Per MD patient may be discharged home from GI standpoint once attending decides to discharge. Pt will need to follow up in the office in 2 weeks.
[2019-07-26 04:30] VITALS: BP 100/62
[2019-07-26 05:14] LABS: BASOPHILS # (AUTO) 0.1 (0.0-0.1); BASOPHILS % 0.9 % (0.0-1.0); EOSINOPHILS # (AUTO) 0.4 (0.0-0.4); EOSINOPHILS % 5.5 % (0.0-6.0); HEMATOCRIT 29.3 % (34.2-44.1); HEMOGLOBIN 9.6 g/dL (12.0-16.0); LYMPHOCYTES # (AUTO) 1.8 (1.0-3.2); LYMPHOCYTES % 23.3 % (18.0-39.1); MEAN CORPUSCULAR HGB CONC 32.8 g/dL (31-35); MEAN CORPUSCULAR VOLUME 94.5 fL (81-99); MONOCYTES # (AUTO) 0.4 (0.2-0.8); MONOCYTES % 5.6 % (4.4-11.3); NEUTROPHILS # (AUTO) 4.8 (2.1-6.9); NEUTROPHILS % 63.8 % (38.7-80.0); PLATELET COUNT 164 x10e3/uL (140-360); RED CELL DISTRIBUTION WIDTH 14.9 % (11.7-14.4)
[2019-07-26] MEDS: LEVOTHYROXINE SODIUM 75 MCG TAB PO SCH (05:32)
--- NOTE | 2019-07-26 05:36 | NUR ---
Patient up to bathroom and back with standby assistance from daughter. No complaints voiced. Call feliciano within reach.
[2019-07-26 07:13] VITALS: BP 100/63
[2019-07-26 07:15] VITALS: BP 100/63
[2019-07-26] MEDS: PANTOPRAZOLE 40 MG 10ML VIAL IV SCH (09:31)
[2019-07-26 11:22] VITALS: BP 111/76
[2019-07-26] MEDS: LIDOCAINE 5% PATCH TP SCH (12:21)
--- NOTE | 2019-07-26 14:15 | NUR ---
PT STABLE. PER MD OK TO DC, NEEDS TO F/U WITH GI FOR LABWORK, PT AND FAMILY AWARE. REVIEWED DC INSTRUCTIONS, VERBALIZED UNDERSTANDING.
--- NOTE | 2019-07-27 11:25 | Discharge Summary ---
Ms. Sorenson is a complex 58-year-old woman, who presented to the emergency room on the with a complaint of weakness and black stools. HOSPITAL COURSE: Initial evaluation showed a hemoglobin of 5.2, and guaiac-positive stools, it was apparent that she had been using aspirin to treat arthritis. She was seen by Dr. Aryan Taylor, bleeding scan was obtained, which showed active bleeding from the 8th, felt to be the distal duodenum or proximal small bowel. She had an endoscopy performed by Dr. Aryan Taylor, showed distal esophagitis, gastritis, and gastric ulcers in the antrum, one 6 mm with heaped up margins in the pre-pyloric area with red spot in the center of the crater, treated with 7-[place] gold probe. The patient is monitored carefully, required a total of 6 units of packed red cells. Today, the patient is feeling better. Still having some loose stools, but hemoglobin today is 9.6. She is instructed not to use any further aspirin. She will use Lidoderm patch for her knee and pantoprazole 40 mg twice a day. She will follow up with Dr. Harrison Merrill and Dr. Aryan Taylor, in the office. FINAL IMPRESSIONS: 1. Gastrointestinal bleeding. 2. Peptic ulcer disease. 3. Arthritis with aspirin usage, given prescriptions Lidoderm patch, pantoprazole. MD OLEGARIO Licea/KAYY /[id number] cc: MD Chavo Cade MD Maurice S Haddad, MD
== END 2019-07-26 15:15 | disposition home or self-care (01) | DRG 378 ==
LOC: ER 10:46 → ERHOLD 18:01 → IMCU 18:39
PROVIDERS: ADMIT Internal Medicine Cardiovascular Disease; ATTEND Internal Medicine Cardiovascular Disease
PROC: 30233N1 Transfusion of Nonautologous Red Blood Cells into Peripheral Vein, Percutaneous Approach (ICD-10-PCS; 2019-07-22)
PROC: 0DJ08ZZ Inspection of Upper Intestinal Tract, Via Natural or Artificial Opening Endoscopic (ICD-10-PCS; 2019-07-23)
PROC: 0D578ZZ Destruction of Stomach, Pylorus, Via Natural or Artificial Opening Endoscopic (ICD-10-PCS; principal; 2019-07-23 18:22)
DX: K25.4 Chronic or unspecified gastric ulcer with hemorrhage (principal); D62 Acute posthemorrhagic anemia; K29.71 Gastritis, unspecified, with bleeding; K20.9 Esophagitis, unspecified; J45.909 Unspecified asthma, uncomplicated; E11.9 Type 2 diabetes mellitus without complications; E03.9 Hypothyroidism, unspecified; E78.5 Hyperlipidemia, unspecified
CPT/HCPCS: 36415; 43235; 70450; 71045; 78278; 80048; 80053; 81001; 82550; 82553; 82607; 82728; 82746; 82948; 83540; 83605; 83690; 83880; 84443; 84466; 84484; 85025; 85045; 85610; 85651; 85730; 86850; 86900; 86920; 87040; 87086; 87186; 93005; 93925; 93970; 96361; 99284; A9512; J1644; J1940; J2001; J2250; J2405; J3010; J7030; J7040; J7050; P9016

== ENCOUNTER → 2019-09-23 | Day surgery (SDC) | payer OTHER ==
[~2019-09-23] MED LIST changes: +ASPIRIN EC81 MG PO; +FENTANYL CITRATE/PF 100MCG/2 ML INJ ONE; +LOVASTATIN40 MG; +METFORMIN HCL500 MG PO; +MIDAZOLAM HCL 2 MG/2 ML VIAL ONE; +PANTOPRAZOLE SO40 MG PO; +PROPOFOL IV EMULSION 10 MG/ML 50 ML VIAL ONE; +SUCRALFATE1 GM PO
[2019-09-23 08:27] VITALS: BP 100/63
--- NOTE | 2019-09-23 09:01 | Operative Report ---
DATE OF PROCEDURE: 09/23/2019 SURGEON: Aryan Taylor MD PROCEDURE: EGD with biopsies. INDICATIONS FOR EGD: History of gastric ulcer. MEDICATIONS: The patient was done under MAC, please see anesthesiologist's note. PROCEDURE IN DETAIL: With the patient in the left lateral decubitus position, a flexible fiberoptic Olympus gastroscope was introduced into the esophagus under direct visualization without any difficulty. There were some patchy erythema noted in distal esophagus. A minute nodule was noted in the distal esophagus that was biopsied. Minute tongue of velvety red mucosa was noted to extend proximally from the GE junction that was biopsied to rule out Colon's. The scope was then advanced with ease into the stomach. Mucosa overlying the antrum and the body revealed some diffuse erythema and [id number] edema and biopsies were obtained and sent to stain for H pylori. A healing gastric ulcer was noted in the peripyloric area that was biopsied. The pylorus was intubated with ease and the scope was advanced all the way to the second portion of the duodenum. The scope was then withdrawn slowly. Mucosa overlying the proximal second portion appeared to be within normal limits. The previously described duodenal ulcer anterior wall is healing well. The scope was then withdrawn back into the stomach and retroflexed and mucosa overlying the fundus and cardia appeared to be within normal limits. The scope was then straightened out, it was subsequently withdrawn. The patient tolerated procedure well. IMPRESSION: 1. Distal esophagitis, mild. 2. Minute nodule, distal esophagus, biopsied. 3. Rule out Colon esophagus. 4. Gastritis, biopsied. Biopsies sent to stain for H pylori. 5. Gastric ulcer, peripyloric area, healing well, biopsied. 6. Previously described duodenal ulcer anterior wall of bulb, healing well. PLAN: Follow up histology. Continue Carafate 1 g p.o. before meals t.i.d. and at bedtime. Add Protonix 40 mg one p.o. q.a.m. before meals. Aryan Taylor MD [facility] [place]/[facility] /[id number] cc: Harrison Merrill MD
== END | disposition home or self-care (01) ==
LOC: OR 06:00
PROVIDERS: ATTEND Internal Medicine Gastroenterology
DX: K25.9 Gastric ulcer, unspecified as acute or chronic, without hemorrhage or perforation (principal); K29.50 Unspecified chronic gastritis without bleeding; B96.81 Helicobacter pylori [H. pylori] as the cause of diseases classified elsewhere; K20.9 Esophagitis, unspecified; K26.9 Duodenal ulcer, unspecified as acute or chronic, without hemorrhage or perforation; K22.8 Other specified diseases of esophagus; I10 Essential (primary) hypertension; E11.9 Type 2 diabetes mellitus without complications; Z79.84 Long term (current) use of oral hypoglycemic drugs
CPT/HCPCS: 36415; 43239; 82948; J2250; J2704; J3010

== ENCOUNTER 2025-06-11 15:19 | Inpatient (IN) | payer OTHER ==
[~2025-06-11] VITALS: Ht 154.9 cm; Wt 97.1 kg
[~2025-06-11 15:19] MED LIST changes: -FENTANYL CITRATE/PF 100MCG/2 ML INJ ONE; -MIDAZOLAM HCL 2 MG/2 ML VIAL ONE; -PROPOFOL IV EMULSION 10 MG/ML 50 ML VIAL ONE
[2025-06-11 16:12] LABS: BASOPHILS % 1.0 % (0.0-1.0); EOSINOPHILS % 0.2 % (0.0-6.0); LYMPHOCYTES % 16.3 % (18.0-39.1); MONOCYTES % 3.1 % (4.4-11.3); NEUTROPHILS % 78.4 % (38.7-80.0); RED CELL DISTRIBUTION WIDTH 12.2 % (11.7-14.4)
[2025-06-11] MEDS ORDERED: SODIUM CHLORIDE FLUSH 10 ML SYR INJ PRN ×2 (16:15→19:00)
[2025-06-11 16:17] LABS: INR 0.89
[2025-06-11 16:23] LABS: ETHANOL < 10.0 mg/dL (0.0-10.0)
[2025-06-11 16:25] LABS: EST GLOMERULAR FILTRATION RATE 98 ML/MIN (>=60); PHOSPHORUS 3.5 MG/DL (2.3-4.7)
[2025-06-11] MEDS ORDERED: IOPAMIDOL 370 MG/ML 100 ML INFUS..BTL INJ ONE (17:28)
[2025-06-11] MEDS ORDERED: SODIUM CHLORIDE 0.9% 100 ML ONE (17:28)
[2025-06-11 18:21] LABS: LEUKOCYTE ESTERASE ,URINE NEGATIVE (NEGATIVE); PROTEIN,URINE DIPSTICK NEGATIVE (NEGATIVE)
[2025-06-11] MEDS: ONDANSETRON HCL INJ 2MG/ML 2ML 2 MG/ML VIAL IV STA (18:21)
[2025-06-11] MEDS: LORAZEPAM INJ 2 MG/ML VIAL IV ONE (18:21)
[2025-06-11 18:22] LABS: AMPHETAMINES SCREEN,URINE NEGATIVE (NEGATIVE); CANNABINOIDS SCREEN,URINE NEGATIVE (NEGATIVE); COCAINE SCREEN,URINE NEGATIVE (NEGATIVE); METHADONE SCREEN, URINE NEGATIVE (NEGATIVE); OPIATES SCREEN,URINE NEGATIVE (NEGATIVE); URINE UROBILINOGEN 0.2 mg/dL (0.2 - 1)
[2025-06-11 18:24] LABS: EPITHELIAL CELLS,URINE MODERATE /LPF
[2025-06-11 18:57] LABS: ABG BASE EXCESS -2.0 mmol/L (-2 - 3); ABG HCO3 24 mmol/L (22-26); ABG OXYGEN SATURATION 93.0 % (95-98); ABG PCO2 43 mmHg (35-45); ABG PH 7.35 (7.35-7.45); ABG PO2 72 mmHg (80-105); ABG TCO2 25
[2025-06-11] MEDS ORDERED: DEXTROSE 50% SYRINGE 50 ML IV PRN (19:00)
[2025-06-11 19:42] VITALS: PULSE 78; RESP 18; TEMP 98.3
[2025-06-11 20:11] VITALS: BP 128/79; PULSE 68; RESP 20; TEMP 97.7; O2SAT 94
[2025-06-11 20:30] VITALS: BP 128/79; PULSE 68; RESP 20; TEMP 97.7; O2SAT 94
[2025-06-11] MEDS: ASPIRIN 325 MG TAB PO ONE (20:37)
[2025-06-11] MEDS: INSULIN REGULAR, HUMAN 100 UNIT/1 ML SQ SCH (22:30)
[2025-06-11] MEDS: SODIUM CHLORIDE 0.9% 1000ML 1,000 ML IV SCH (22:32)
[2025-06-11] MEDS: ONDANSETRON HCL INJ 2MG/ML 2ML 2 MG/ML VIAL IV PRN (22:41)
[2025-06-12] VITALS (10 sets, daily range): BP systolic 127–184; BP diastolic 72–90; PULSE 51–91; RESP 17–20; TEMP 97.8–98.7; O2SAT 96–98
[2025-06-12] MEDS ORDERED: PANTOPRAZOLE SO40 MG PO (04:44)
[2025-06-12] MEDS ORDERED: GLIPIZIDE-METF1 EAC2 PO (04:44)
[2025-06-12 07:30] LABS: BASOPHILS % 0.9 % (0.0-1.0); EOSINOPHILS % 0.6 % (0.0-6.0); LYMPHOCYTES % 28.2 % (18.0-39.1); MONOCYTES % 6.2 % (4.4-11.3); NEUTROPHILS % 63.4 % (38.7-80.0); RED CELL DISTRIBUTION WIDTH 12.2 % (11.7-14.4)
[2025-06-12 08:17] LABS: EST GLOMERULAR FILTRATION RATE 99.0 ML/MIN (>=60)
[2025-06-12] MEDS: ASPIRIN 325 MG TAB PO SCH (08:50)
[2025-06-12 08:58] LABS: CHOL/HDL RATIO 5.9 (3.0-3.6); LDL CHOLESTEROL 181.0 MG/DL (60-130)
[2025-06-12] MEDS ORDERED: ONDANSETRON HCL INJ 2MG/ML 2ML 2 MG/ML VIAL IV PRN (10:00)
[2025-06-12] MEDS: AMOXICILLIN/CLAVULANATE K 875 MG TAB PO SCH (10:21)
[2025-06-13] VITALS: BP 130/81; PULSE 59; RESP 18; TEMP 97.8; O2SAT 97
[2025-06-13 03:36] VITALS: BP 135/72; RESP 18; TEMP 97.5; O2SAT 97
[2025-06-13] MEDS: LEVOTHYROXINE SODIUM 100 MCG TAB PO SCH (05:25)
[2025-06-13 08:00] VITALS: BP 141/81; PULSE 51; RESP 18; TEMP 98.1; O2SAT 97
[2025-06-13 09:00] VITALS: BP 141/81; PULSE 51; RESP 18; TEMP 98.9; O2SAT 97
[2025-06-13] MEDS: ACETAMINOPHEN 325 MG TAB PO PRN (10:02)
[2025-06-13 11:09] LABS: ABG BASE EXCESS -2.0 mmol/L (-2 - 3); ABG HCO3 24 mmol/L (22-26); ABG OXYGEN SATURATION 93.0 % (95-98); ABG PCO2 43 mmHg (35-45); ABG PH 7.35 (7.35-7.45); ABG PO2 72 mmHg (80-105); ABG TCO2 25
[2025-06-13] MEDS ORDERED: AMOX TR-K CLV1 EAC2 PO (11:32)
[2025-06-13] MEDS ORDERED: MECLIZINE HCL12.5 MG PO (11:32)
[2025-06-13] MEDS ORDERED: COZAAR100 MG PO (11:32)
[2025-06-13 12:00] VITALS: BP_SYST 126; BP_SYST 143; BP_SYST 144; BP_DIAS 74; BP_DIAS 77; BP_DIAS 86; PULSE 57; RESP 18; TEMP 98.2; O2SAT 97
[2025-06-13 12:43] VITALS: BP 143/74
[2025-06-13] MEDS: LOSARTAN POTASSIUM 100 MG TAB PO SCH (12:43)
[2025-06-14] MEDS ORDERED: LOSARTAN POTASSIUM 100 MG TAB PO SCH (09:00)
== END 2025-06-13 14:41 | disposition home or self-care (01) | DRG 948 ==
LOC: ER 15:51 → INTOOBSV 18:53 → ERHOLD 18:53 → MED/SURG3 20:41 → OBSVTOIN 06-12 09:30
PROVIDERS: ADMIT Internal Medicine; ATTEND Internal Medicine
PROC: 4A133R1 Monitoring of Arterial Saturation, Peripheral, Percutaneous Approach (ICD-10-PCS; principal; 2025-06-11)
DX: R41.82 Altered mental status, unspecified (principal); E66.01 Morbid (severe) obesity due to excess calories; Z68.41 Body mass index [BMI] 40.0-44.9, adult; E03.9 Hypothyroidism, unspecified; E11.65 Type 2 diabetes mellitus with hyperglycemia; I10 Essential (primary) hypertension; H66.92 Otitis media, unspecified, left ear; H55.00 Unspecified nystagmus; R42 Dizziness and giddiness; E78.5 Hyperlipidemia, unspecified; R11.2 Nausea with vomiting, unspecified; H92.03 Otalgia, bilateral; H53.143 Visual discomfort, bilateral; Z79.890 Hormone replacement therapy; Z79.84 Long term (current) use of oral hypoglycemic drugs
CPT/HCPCS: 36415; 36600; 70450; 70496; 70498; 70551; 71045; 80053; 80061; 80307; 80320; 81001; 82140; 82550; 82805; 82948; 83036; 83735; 84100; 84439; 84443; 84484; 85025; 85610; 85730; 93005; 94760; 99252; 99284; G0378; J2060; J2405; J7030; J7050; Q9967